=== PATIENT | male | born 1960 | race Caucasian/White ===

== ENCOUNTER 2021-10-07 13:40 | Emergency (ER) | payer BC, OTHER, SELFPAY ==
[2021-10-07 14:04] VITALS: BP 119/68; RESP 16; TEMP 37.1; O2SAT 98; BMI 22.9
--- NOTE | 2021-10-07 14:25 | HMH.EDUTC ---
[facility] [place] Disposition Clinical Impression: Low back pain Qualifiers: Chronicity: unspecified Back pain laterality: bilateral Sciatica presence: without sciatica Qualified Code(s): M54.50 - Low back pain, unspecified Disposition: Home, Self-Care Condition on Discharge: Good Instructions: Low Back Pain, DI for Low Back Pain Additional Instructions: Go home and rest. It would be best if you rested tomorrow too. No heavy lifting. No twisting. Take the oral medications as directed. The muscle relaxer (cyclobenzaprine--Flexeril) will make you drowsy, so don't drive or operate heavy machinery after taking it. Don't start the oral steroids (medrol dose pack) until tomorrow, since you had the shots in here today. Follow up with your regular doctor. GO TO THE ER FOR ANY WORSENING SYMPTOMS OR CONCERN, ESPECIALLY BOWEL OR BLADDER ISSUES, SADDLE AREA NUMBNESS, FEVER, ETC Prescriptions: Cyclobenzaprine HCl [Cyclobenzaprine 10mg Tab] 10 mg PO BIDP PRN #20 tab PRN Reason: Muscle Spasm Transmission Status: Received by [facility] [employer] methylPREDNISolone [Medrol] 4 mg PO DIRECTED 6 Days #21 packet Transmission Status: Received by [facility] [employer] Referrals: Jose Alfredo Griffin MD [Primary Care Provider] - Time of Disposition: 15:22 Medical Decision Making - Medical Records Medical records reviewed: No: I reviewed the patient's medical records. - [place] Inquiry Pt receiving controlled substance: No Vital Signs: 10/07/21 14:04 10/07/21 15:25 Temperature 98.7 F 98.7 F Temperature Source Oral Pulse Rate 79 Respiratory Rate 16 16 Blood Pressure 119/69 Blood Pressure [Right Arm] 119/68 Blood Pressure Mean [Right Arm] 85 02 Sat by Pulse Oximetry 98 Orders (Tests/Meds): ED MEDICATIONS Discontinued Medications Generic Name Dose Route Start Last Admin Trade Name Freq PRN Reason Stop Dose Admin Ketorolac Tromethamine 60 mg 10/07/21 15:02 10/07/21 15:19 Ketorolac 60mg/2ml Vial IM 10/07/21 15:03 60 mg ONCE ONE Administration Methylprednisolone Sodium Succinate 125 mg 10/07/21 15:02 10/07/21 15:19 Methylprednisolone Sod Succ 125mg Vial IM 10/07/21 15:03 125 mg ONCE ONE Administration [facility] [place] HPI - General Stated complaint: lower back pain Time Seen by Provider: 10/07/21 14:48 Mode of Arrival: Ambulatory Source of Information: Patient Limitations: No Limitations Description of Symptoms (Recalled from Triage Doc. by RN): pt c/o of lower to mid back pain. x3 days. he has had a flare up with it before but not this painful. no injury. HEENT Symptoms (Recalled from RN notes): No Resp Symptoms (Recalled from RN notes): No Skin Symptoms (Recalled from RN notes): No MS Symptoms (Recalled from RN notes): Yes Functional Status (Recalled from RN notes): wnl - History of Present Illness Provider Complaint: He states that for the past 1 week he has been having low back pain. He denies any known injury. - Related Data Previous Rx's Medication Instructions Recorded Azithromycin [Z-Omkar 250mg Tab*] 250 mg PO UD DOSE PK #6 tab 11/08/18 Benzonatate [Tessalon Perle 100mg 100 mg PO TIDP PRN #30 cap 11/08/18 Cap] Promethazine/Dextromethorphan 5 ml PO Q6HP PRN #240 ml 11/08/18 [Promethazine-Dm Syrup] Cyclobenzaprine HCl 10 mg PO BIDP PRN #20 tab 10/07/21 [Cyclobenzaprine 10mg Tab] methylPREDNISolone [Medrol] 4 mg PO DIRECTED 6 Days #21 10/07/21 packet Allergies Allergy/AdvReac Type Severity Reaction Status Date / Time No Known Allergies Allergy Verified 11/08/18 11:18 - Worker's Comp Is this a Worker's Comp case?: No [facility] History - Hepatitis A Screen Drug use history?: No High risk sexual behaviors?: No History of sexually transmitted infection?: No Currently employed?: No Childcare worker?: No Do you have indoor plumbing?: Yes Do you have electricity?: Yes Attestation statement:: This patient has been screened for Hepatitis A risk factors.
[2021-10-07 15:25] VITALS: BP 119/69; PULSE 79; RESP 16; TEMP 37.1
== END 2021-10-07 15:25 | disposition home or self-care (01) ==
PROVIDERS: Emergency Provider Nurse Practitioner Family; PCP Internal Medicine Adolescent Medicine
DX: M54.50 Low back pain, unspecified (principal); F17.210 Nicotine dependence, cigarettes, uncomplicated
CPT/HCPCS: 96372; 99212; G0463